=== PATIENT | female | born 1970 | race Two or more races ===

== ENCOUNTER 2022-09-16 06:04 | Day surgery (SDC) | payer OTHER ==
[~2022-09-16 06:04] MED LIST: AMITRIPTYLINE H75 MG PO; ATIVAN1 M1 PO; COZAAR100 MG PO; GLUCOTROL XL5 MG PO; LEVO-T75 MCG PO; PROZAC10 MG PO; TOPROL XL100 M1 PO
[2022-09-16] MEDS ORDERED: PERCOCET 5-3251 EACH PO (11:44)
== END 2022-09-16 14:45 | disposition home or self-care (01) ==
LOC: CIR.AMB 06:04
PROVIDERS: ATTEND Surgery
DX: C73 Malignant neoplasm of thyroid gland (principal); E06.3 Autoimmune thyroiditis; Z88.2 Allergy status to sulfonamides; Z88.0 Allergy status to penicillin; I10 Essential (primary) hypertension; E11.9 Type 2 diabetes mellitus without complications; E03.9 Hypothyroidism, unspecified; Z79.84 Long term (current) use of oral hypoglycemic drugs; Z20.822 Contact with and (suspected) exposure to COVID-19

== ENCOUNTER 2022-09-17 14:07 | Emergency (ER) | payer OTHER ==
[~2022-09-17] VITALS: Ht 160 cm; Wt 127.0 kg
[~2022-09-17 14:07] MED LIST changes: +PERCOCET 5-3251 EACH PO
== END 2022-09-17 19:51 | disposition home or self-care (01) ==
LOC: ER 14:07
DX: T81.30XA Disruption of wound, unspecified, initial encounter (principal); Z88.0 Allergy status to penicillin; Z88.2 Allergy status to sulfonamides; E03.9 Hypothyroidism, unspecified